=== PATIENT | female | born 1935 | race Caucasian/White ===

== ENCOUNTER 2019-04-07 11:41 | Outpatient (CLI) | payer MEDICARE ==
--- NOTE | 2019-04-07 13:27 | ULT ---
BILATERAL CAROTID DUPLEX ULTRASOUND: HISTORY: Syncope. TECHNIQUE: Real-time color Doppler evaluation of the right and left carotid systems was performed. FINDINGS: This shows minimal plaque formation at the origin of both internal carotid arteries and also mild int imal thickening of both common carotid arteries. On the right side the peak systolic velocity of the common carotid was 55 cm per second. Internal car otid velocity was 75 cm per second and external carotid velocity was 65 cm per second. On the left side the peak systolic velocities of the common carotid were 57 cm per second, internal c arotid velocities were 57 cm per second and external carotid velocities were 68 cm per second. Vertebral flow is antegrade bilaterally. IMPRESSION: No evidence of hemodynamically significant stenosis of either internal carotid artery. POS: [facility]I
== END 2019-04-07 11:42 | disposition home or self-care (01) ==
LOC: SCSULT 11:41
PROVIDERS: ATTEND Family Medicine
DX: R42 Dizziness and giddiness (principal)
CPT/HCPCS: 93880

== ENCOUNTER 2019-10-01 15:37 | Outpatient (CLI) | payer MEDICARE ==
--- NOTE | 2019-10-01 16:05 | RAD ---
EXAM: XR Lumbar Spine 2 Or 3 View PROVIDED CLINICAL HISTORY: Low back pain for one year. COMPARISON: None FINDINGS: 5 nonrib-bearing lumbar-type vertebral bodies are visualized. Mild left convex curvature of thoracolu mbar spine is present. Narrowing of the intervertebral disc spaces is present at all levels greatest at the L5-S1 level. Osteopenia is present. The vertebral body heights appear to be within no rmal limits. Scattered osteophytes are visualized. Facet degenerative changes are seen in the lumbar spine. Multiple punctate radiopaque densities are seen overlying the abdomen likely related to ingested mate rial within bowel and likely within the colon, and there is a moderate amount retained fecal material present. Surgical clips overlie the right upper quadrant. 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
--- NOTE | 2019-10-01 16:08 | RAD ---
EXAM: XR Sacrum and Coccyx STANDARD PROVIDED CLINICAL HISTORY: Low back pain for one week. COMPARISON: None FINDINGS: Osteopenia is present. Degenerative changes are seen in the lower lumbar spine. Mild degenerative feliciano nges are seen involving each sacroiliac joint. No displaced fracture is appreciated involving the sacrum or coccyx. Multiple scattered radiopaque densities likely due to ingested material are seen overlying the region of the colon with moderate amount retained fecal material seen in the colon. IMPRESSION: 1. Osteopenia which does limit osseous detail, but no definite acute osseous abnormality is seen. 2. Degenerative changes in the lower lumbar spine involving each sacroiliac joint.
== END 2019-10-01 15:38 | disposition home or self-care (01) ==
LOC: SCSRAD 15:37
PROVIDERS: ATTEND Family Medicine
DX: M54.5 Low back pain (principal); M47.816 Spondylosis without myelopathy or radiculopathy, lumbar region; M47.818 Spondylosis without myelopathy or radiculopathy, sacral and sacrococcygeal region; M85.80 Other specified disorders of bone density and structure, unspecified site; M41.9 Scoliosis, unspecified
CPT/HCPCS: 72100; 72220

== ENCOUNTER 2019-10-16 12:32 | Outpatient (CLI) | payer MEDICARE ==
--- NOTE | 2019-10-16 14:33 | CT ---
CT lumbar spine without contrast: HISTORY: Low back pain without history of injury. Gait difficulty. COMPARISON: No prior CT exams of the lumbar spine available FINDINGS: Curvilinear density is present at the right lung base which may represent minimal scarring versus ate lectasis. Partial visualization of cardiac pacemaking leads are seen. Vascular calcifications are noted in the abdominal aorta and iliac arteries. Postsurgical changes related to cholecystectomy are seen. Evaluation of retroperitoneal structures is limited due to significant motion artifact. There is a left adrenal nodule which was also seen on a CT examination in 2010. This nodule measures 14 mm and demonstrates an attenuation coefficient most suggestive of an adrenal adenoma. Colonic diverticulosis is present. There is diffuse osteopenia and multilevel degenerative changes in the spine with mild left convex cu rvature of thoracolumbar spine.. A burst type fracture involves the L2 vertebral body with approximately 20% loss of height. There is retropulsion of the posterior superior endplate as well as posterior inferior endplate of this vertebral body fracture. Obliquely oriented fracture lucency is seen involving the right inferolateral aspect of the vertebral body as well as the left superolate ral aspect of the vertebral body. Remaining vertebral body heights are within normal limits. Trace anterolisthesis of L5 on S1 is present. Narrowing of the intervertebral disc spaces is present at all levels with vacuum phenomenon seen at all levels of the lumbar spine. T12-L1: Severe loss of intervertebral disc height. Broad-based disc osteophyte complex is present whi ch narrows the ventral subarachnoid space. Neural foramina are patent. L1-2: Burst fracture L2 vertebral body as described above including fractures of the junction of each pedicle with the vertebral body. Retropulsion of the central aspect of the posterior superior endplate is present which results in mass effect on the central aspect of the central canal, and this extends 9 mm anterior to posterior and retropulsion is primarily posterior to the L2 vertebral body. Mild right-sided neural foraminal narrowing is present. Left neural foramen is patent, but ther e is mild right-sided neural foraminal narrowing. Disc osteophyte complex is present at this level resulting mild effacement of the ventral aspect of the thecal sac. There is encroachment on the exite d right L1 nerve root lateral due to a lateral right disc osteophyte complex. L2-3: Disc osteophyte complex is present with mild effacement of ventral aspect of the thecal sac. Le ft neural foramen is patent, but there is [id number] right-sided neural foraminal narrowing. L3-4: Disc osteophyte complex is present. Facet hypertrophic change and ligamentous thickening are no an. Moderate central canal narrowing is present with narrowing of the lateral recesses greater on the left. Minimal bilateral neural foraminal narrowing is present. L4-5: Broad-based disc osteophyte complex is present. Facet hypertrophic changes and ligamentous thic kening are noted. This results in moderate narrowing of the central spinal canal and mild bilateral neural foraminal narrowing greater on the left. L5-S1: Broad-based disc osteophyte complex is present with small disc extrusion with disc material se en extending slightly superiorly and located posterior to the inferior endplate L5 vertebral body. Facet hypertrophic changes are noted. Moderate central canal narrowing is present. Gas is present wit hin the intervertebral disc as well as in the region of the small disc extrusion. Moderate to severe bilateral neural foraminal narrowing is present. IMPRESSION: 1. Burst fracture L2 vertebral body with obliquely oriented fracture planes as well as fractures invo lving the junction of each pedicle with the vertebral body. Retropulsion of fracture fragments results in effacement of the central aspect of the central spinal canal. Exact age of this fracture i s indeterminate, but given appearance of fracture lucencies, this is most suggestive of a more recent burst fracture. Definitive height loss involving the L2 vertebral body is not able to be disce rned on prior views of the lumbar spine due to the left convex curvature on the lateral view and overlying artifact. No definitive height loss is seen on the AP radiograph on that exam. 2. Extensive multilevel degenerative changes as described above. 3. Above findings were discussed with Dr. Makayla Jiang on 10/16/2019 at 1421 hours.
== END 2019-10-16 12:33 | disposition home or self-care (01) ==
LOC: SCSCT 12:32
PROVIDERS: ATTEND Family Medicine
DX: M54.5 Low back pain (principal); R26.9 Unspecified abnormalities of gait and mobility; S32.021A Stable burst fracture of second lumbar vertebra, initial encounter for closed fracture
CPT/HCPCS: 72131